=== PATIENT | female | born 1985 | race Caucasian/White ===

== ENCOUNTER 2023-07-18 08:29 | Day surgery (SDC) | payer OTHER ==
[~2023-07-18] VITALS: Ht 165.1 cm; Wt 75.3 kg
[~2023-07-18 08:29] MED LIST: ALLERGY RE50 MCG/ACT; BACLOFEN20 MG PO; CYMBALTA30 MG PO; DOXYCYCLINE HY100 MG PO; KENALOG15 GM/TUBE EX; LORTAB 5/3255 MG PO; MELOXICAM15 MG PO; METRONIDAZOLE500 MG PO; TIZANIDINE4 MG PO; VICTOZA18 MG/3 ML SC; ZOFRAN4 MG/TAB PO
[2023-07-18 08:54] LABS: HCG SERUM/URINE (NEG/POS) NEGATIVE (NEGATIVE)
[2023-07-18] MEDS ORDERED: PERCOCET 5/321 COMBO PO (08:56)
[2023-07-18 10:03] VITALS: BP 131/79
== END 2023-07-18 09:45 | disposition home or self-care (01) ==
LOC: ORM 08:29
PROVIDERS: ATTEND Student in an Organized Health Care Education/Training Program
DX: G89.4 Chronic pain syndrome (principal); M54.9 Dorsalgia, unspecified; M51.36 Other intervertebral disc degeneration, lumbar region; M62.838 Other muscle spasm; M47.816 Spondylosis without myelopathy or radiculopathy, lumbar region